=== PATIENT | female | born 1980 | race Caucasian/White ===

== ENCOUNTER 2017-05-30 10:50 | Emergency (ER) | payer MEDICAID, OTHER ==
[2017-05-30 11:06] VITALS: RESP 16; TEMP 98.2
--- NOTE | 2017-05-30 12:08 | EDPHY ---
General - History Smoking Status: Current every day smoker Narrative: CHIEF COMPLAINT: Right hand pain HISTORY OF PRESENT ILLNESS: Patient complains of right hand pain. The pain is been present for nearly a year, but she noticed a "bump "on the hand approximately 1 month ago. The area is over the dorsum of the right hand overlying the 2nd and 3rd metacarpals. The pain has been chronic but does wax and wane. It is worse when she goes up higher elevation. It is worse with certain movements. It is also worse in the morning, and in the morning she does associated with some paresthesia and "numbness." No known trauma or injury. No difficulty using the hand other than pain. Occasionally radiates into the forearm. She has not been evaluated by anyone recently for this. No other associated complaints or modifying factors. ESTABLISHED ORTHOPEDIST: None REVIEW OF SYSTEMS: Ten systems reviewed and are negative unless otherwise noted in the HPI PAST MEDICAL HISTORY: Depression, asthma PAST SURGICAL HISTORY: None SOCIAL HISTORY: Daily smoker. Occasional alcohol and marijuana use. FAMILY HISTORY: Noncontributory EXAMINATION General Appearance: Alert, no distress Cardiovascular: Symmetric radial pulses 2+. Brisk cap refill Neurological: A&O, sensory symmetric, interossei strength symmetric. No wrist drop Skin: Warm and dry, no rash. No petechiae or purpura. No erythema or edema. No crepitus, fluctuance or cellulitis of the hand. Extremities: Mild tenderness of the 2nd and 3rd metacarpals of the right hand, dorsal. There is a firmness overlying the 2nd metacarpal consistent with ganglion cyst versus unknown etiology. This is very small and mobile. There is no evidence of tenosynovitis or flexor synovitis. No evidence of septic joint Psychiatric: Mood and affect normal DIFFERENTIAL DIAGNOSES: Including but not limited to cysts, autoimmune disorder, inflammatory disorder, fracture, sprain, strain MDM: 12:15 p.m. Chronic right hand pain with palpable cystic structure in the right hand overlying the 4th and 5th metacarpals. Suspect ganglion cyst versus possible neuroma. She is neuro intact distally. 1:13 p.m. X-ray has been read is dorsal soft tissue swelling with out any acute fracture dislocation. Radiologist recommends consideration of ultrasound for investigation. I have re-evaluated the patient. We discussed the x-ray findings. I did offer ultrasound for further delineation but the patient has declined. I have no clinical suspicion of abscess for this given the appearance and the chronicity of this. High suspicion for cyst versus neuroma versus autoimmune inflammatory disease. I will treat her with short course of pain medication steroid. I will provide outpatient hand follow-up as well as primary care physician. We discussed ED precautions. She is comfortable this plan and discharged home stable condition. SUPERVISION: This patient was independently evaluated without direct involvement of or examination by the attending physician. ED Precautions: Worsening pain. Erythema, edema, cyanosis, pallor, paresthesia or anesthesia. (Thom Story) The patient was evaluated and managed by the physician blood and plasma laboratory assistant. I have reviewed this chart and I agree with the findings and plan of care as documented , as indicated by my signature. I am the secondary supervising physician. ( Roxanne Quinones) - Diagnostics Imaging Results: Imaging Impressions Hand X-Ray 05/30/17 12:08 Impression: Dorsal soft tissue swelling. Consider ultrasound for further localization and characterization. - Objective Vital Signs: Initial Vital Signs Temperature (C) 36.8 C 05/30/17 11:03 Heart Rate 88 05/30/17 11:03 Respiratory Rate 16 05/30/17 11:03 Blood Pressure 121/75 H 05/30/17 11:03 O2 Sat (%) 98 05/30/17 11:03 O2 Delivery Mode Room Air Allergies/Adverse Reactions: meloxicam Allergy (Verified 05/30/17 11:01) Home Medications: Medication Instructions Recorded Albuterol Sulfate 2.5 mg IH 02/03/13 Ortho-Cyclen 02/04/15 FLUoxetine 05/30/17 Flexeril 05/30/17 oxyCODONE HCL/ACETAMINOPHEN 1 each PO Q4-6PRN PRN #7 tablet 05/30/17 [Percocet 5-325 mg Tablet] predniSONE [Deltasone] 60 mg PO DAILY #15 tablet 05/30/17 Departure - Departure Disposition: Home, Routine, Self-Care Clinical Impression: Hand pain, right, Other bursal cyst, right hand Condition: Good Instructions: Ganglion Cysts (ED) Additional Instructions: 1. Medications as prescribed to completion 2. Contact primary care physician as discussed 3. Contact the on-call hand surgeon as provided 4. ED precautions as discussed Referrals: Stefanie Young PA [Primary Care Provider] - As per Instructions Liseth Petersen MD [Medical Doctor] - As per Instructions Adi Haynes MD [Medical Doctor] - As per Instructions Prescriptions: oxyCODONE HCL/ACETAMINOPHEN [Percocet 5-325 mg Tablet] 1 each PO Q4-6PRN PRN #7 tablet PRN Reason: Pain, Breakthrough predniSONE [Deltasone] 60 mg PO DAILY #15 tablet
[2017-05-30 13:36] VITALS: BP 123/82; PULSE 82; O2SAT 96
== END 2017-05-30 13:37 | disposition home or self-care (01) ==
DX: M71.341 Other bursal cyst, right hand (principal); J45.909 Unspecified asthma, uncomplicated; F17.200 Nicotine dependence, unspecified, uncomplicated